=== PATIENT | female | born 1960 | race Caucasian/White ===

== ENCOUNTER → 2016-03-26 | Outpatient (CLI) | payer OTHER ==
--- NOTE | 2016-03-27 09:00 | BD ---
EXAMINATION TYPE: MG DEXA axial skeleton. DATE OF EXAM: 03/26/2016 4:28 PM COMPARISON: NONE CLINICAL HISTORY: Height: 63 IN Weight: 117 LBS FRAX RISK QUESTIONS: Alcohol (3 or more units per day): NO Family History (Parent hip fracture): NO Glucocorticoids (More than 3mos): NO (Ex: prednisone, prednisolone, methylprednisolone, dexamethasone, and hydrocortisone). History of Fracture in Adulthood: NO Secondary Osteoporosis: 1. Type 1 Diabetes: NO 2. Hyperthyroidism: NO 3. Menopause before 45: NO AGE 53 4. Malnutrition: NO 5. Chronic liver disease: NO Rheumatoid Arthritis: NO Current Tobacco Use: NO RISK FACTORS HISTORY OF: Postmenopausal woman: AGE 53 MEDICATIONS: Additional Medications: NONE EXAM MEASUREMENTS: Bone mineral densitometry was performed using the [employer] System. Bone mineral density as measured about the Lumbar spine is: ----- L1-L4(G/cm2): 1.091 T Score Values are as follows: ----- L2: -1.3 ----- L3: -0.7 ----- L4: 0.0 ----- L1-L4: -0.7 Bone mineral density BASELINE Bone mineral density about the R hip (g/cm2): 0.780 Bone mineral density about the L hip (g/cm2): 0.718 T Score values are as follows: -----R Neck: -1.9 -----L Neck: -2.3 -----R Intertrochanter: -2.0 -----L Intertrochanter: -2.2 Bone mineral density has: BASELINE IMPRESSION: Osteopenia (T Score between -2.5 and -1 as noted by T score values There is slightly increased risk of fracture and the patient may be considered for treatment. Re-Screen 1-2 years.L2 AND KERRI HIPS NOTE: T-SCORE=SD OF THE YOUNG ADULT MEAN.
--- NOTE | 2016-04-02 09:40 | MM ---
Reason for exam: screening (asymptomatic). Last mammogram was performed 3 years and 1 month ago. History: Patient is postmenopausal. Physical Findings: A clinical breast exam by your physician is recommended on an annual basis and results should be correlated with mammographic findings. MG 3D Screening Mammo W/Cad Bilateral CC and MLO view(s) were taken. Prior study comparison: March 09, 2013, right diagnostic mammogram w/CAD. December 22, 2012, mammogram, performed at [facility]. The breast tissue is heterogeneously dense. This may lower the sensitivity of mammography. There is no discrete abnormality. ASSESSMENT: Negative, BI-RAD 1 RECOMMENDATION: Routine screening mammogram of both breasts in 1 year.
== END | disposition home or self-care (01) ==
LOC: RADMAMWWP 15:17
PROVIDERS: ATTEND Family Medicine
DX: Z12.31 Encounter for screening mammogram for malignant neoplasm of breast (principal); M85.852 Other specified disorders of bone density and structure, left thigh; M85.851 Other specified disorders of bone density and structure, right thigh; M85.88 Other specified disorders of bone density and structure, other site
CPT/HCPCS: 77080; 77063; G0202

== ENCOUNTER → 2018-03-04 | Outpatient (CLI) | payer OTHER ==
--- NOTE | 2018-03-05 10:39 | MM ---
Reason for exam: screening (asymptomatic). Last mammogram was performed 1 year and 11 months ago. History: Patient is postmenopausal. Took hormonal contraceptives for 15 years. Physical Findings: A clinical breast exam by your physician is recommended on an annual basis and results should be correlated with mammographic findings. MG 3D Screening Mammo W/Cad Bilateral CC and MLO view(s) were taken. Prior study comparison: March 26, 2016, bilateral MG 3d screening mammo w/cad. March 09, 2013, right diagnostic mammogram w/CAD. The breast tissue is heterogeneously dense. This may lower the sensitivity of mammography. Focal asymmetry upper outer right breast middle third position. This finding is changed when compared with previous exams. ASSESSMENT: Incomplete: need additional imaging evaluation, BI-RAD 0 RECOMMENDATION: Special view mammogram of the right breast. If lesion persists on supplemental views, image directed ultrasound is recommended. [facility] will attempt to contact patient to return for supplemental views and ultrasound if indicated.
== END | disposition home or self-care (01) ==
LOC: RADMAMWWP 15:14
PROVIDERS: ATTEND Family Medicine
DX: Z12.31 Encounter for screening mammogram for malignant neoplasm of breast (principal)
CPT/HCPCS: 77063; 77067

== ENCOUNTER → 2018-03-23 | Outpatient (CLI) | payer OTHER ==
--- NOTE | 2018-03-27 12:22 | MM ---
Reason for exam: additional evaluation requested from abnormal screening. Last mammogram was performed 1 month ago. History: Patient is postmenopausal. Took hormonal contraceptives for 15 years. Physical Findings: Nurse did not find any significant physical abnormalities on exam. MG 3D Work Up W/Cad RT Spot compression CC, spot compression MLO, and LM view(s) were taken of the right breast. Prior study comparison: March 04, 2018, bilateral MG 3d screening mammo w/cad. March 26, 2016, bilateral MG 3d screening mammo w/cad. The breast tissue is heterogeneously dense. This may lower the sensitivity of mammography. No distinct lesion persists on additional views. These results were verbally communicated with the patient and result sheet given to the patient on 03/23/18. ASSESSMENT: Benign, BI-RAD 2 RECOMMENDATION: Return to routine screening mammogram schedule for both breasts.
== END | disposition home or self-care (01) ==
LOC: RADMAMWWP 10:08
PROVIDERS: ATTEND Family Medicine
DX: R92.8 Other abnormal and inconclusive findings on diagnostic imaging of breast (principal)
CPT/HCPCS: 77061; 77065

== ENCOUNTER → 2021-05-16 | Outpatient (CLI) | payer OTHER ==
--- NOTE | 2021-05-16 11:12 | BD ---
EXAMINATION TYPE: Axial Bone Density DATE OF EXAM: 05/16/2021 COMPARISON: NONE CLINICAL HISTORY: 60 year old Female. ICD-10 CODE: Z78.0 MENOPAUSAL STATE Height: 63 Weight: 133.8 FRAX RISK QUESTIONS: Alcohol (3 or more units per day): no Family History (Parent hip fracture): no Glucocorticoids (More than 3mos): no (Ex: prednisone, prednisolone, methylprednisolone, dexamethasone, and hydrocortisone). History of Fracture in Adulthood: no Secondary Osteoporosis: 1. Type 1 Diabetes: no 2. Hyperthyroidism: no 3. Menopause before 45: no 4. Malnutrition: no 5. Chronic liver disease: no Rheumatoid Arthritis: no Current Tobacco Use: no RISK FACTORS HISTORY OF: Surgery to Spine/Hip(right/left)/Wrist (right/left): no Family History of Osteoporosis: no Active: yes Diet low in dairy products/other sources of calcium: yes Postmenopausal woman: yes Take estrogen and/or progesterone medications: yes Lost more than 2 inches in height since high school: no MEDICATIONS: Additional History: EXAM MEASUREMENTS: Bone mineral densitometry was performed using the [email or web address] System. Bone mineral density as measured about the Lumbar spine is: ----- L1-L4(G/cm2): 1.022 T Score Values are as follows: ----- L1: -1.9 ----- L2: -2.3 ----- L3: -0.6 ----- L4: -1.0 ----- L1-L4: -1.3 Bone mineral density has: decreased -6.2 % since study of: 03.26.2016 Bone mineral density about the R hip (g/cm2): 0.720 Bone mineral density about the L hip (g/cm2): 0.689 T Score values are as follows: -----R Neck: -2.3 -----L Neck: -2.5 -----R Total: -1.8 -----L Total: -2.0 Bone mineral density has: decreased -1.5 % since study of: 03.26.2016 FRAX %: The graph provided illustrates a 11.7% chance for a major osteoporotic fx and a 2.3% chance f or the hips probability for fx in 10 years time. IMPRESSION: Osteopenia lumbar spine and bilateral femora. NOTE: T-SCORE=SD OF THE YOUNG ADULT MEAN.
== END | disposition home or self-care (01) ==
LOC: RADBDWWP 09:09
PROVIDERS: ATTEND Family Medicine
DX: M85.89 Other specified disorders of bone density and structure, multiple sites (principal); Z78.0 Asymptomatic menopausal state
CPT/HCPCS: 77080

== ENCOUNTER → 2021-05-24 | Outpatient (CLI) | payer OTHER ==
--- NOTE | 2021-05-28 10:48 | MM ---
Reason for exam: screening (asymptomatic). Last mammogram was performed 3 years and 2 months ago. History: Patient is postmenopausal. Took hormonal contraceptives for 15 years. Physical Findings: A clinical breast exam by your physician is recommended on an annual basis and results should be correlated with mammographic findings. MG 3D Screening Mammo W/Cad Bilateral CC and MLO view(s) were taken. Prior study comparison: March 23, 2018, right breast MG 3d work up w/cad RT. March 04, 2018, bilateral MG 3d screening mammo w/cad. The breast tissue is heterogeneously dense. This may lower the sensitivity of mammography. There are benign appearing round calcifications in the left breast. There is no discrete abnormality. ASSESSMENT: Benign, BI-RAD 2 RECOMMENDATION: Routine screening mammogram of both breasts in 1 year.
== END | disposition home or self-care (01) ==
LOC: RADMAMWWP 08:12
PROVIDERS: ATTEND Family Medicine
DX: Z12.31 Encounter for screening mammogram for malignant neoplasm of breast (principal); Z78.0 Asymptomatic menopausal state
CPT/HCPCS: 77063; 77067

== ENCOUNTER → 2022-04-02 | Outpatient (CLI) | payer OTHER ==
--- NOTE | 2022-04-02 14:56 | NM ---
EXAMINATION TYPE: NM bone scan whole body DATE OF EXAM: 04/02/2022 COMPARISON: NONE HISTORY: M54.51 Delayed whole-body scanning was performed following the injection of 22.1 mCi Tc 99m MDP. Images acq uired 3 hours post injection. FINDINGS: Degenerative uptake at the cervicothoracic junction as well as at L4 and L5 greatest on the left. No intense uptake to suggest fracture or bony metastatic disease. IMPRESSION: Generative changes as noted.
== END | disposition home or self-care (01) ==
LOC: RADNMMAIN 10:43
PROVIDERS: ATTEND Physical Medicine & Rehabilitation
DX: M47.23 Other spondylosis with radiculopathy, cervicothoracic region (principal); M48.062 Spinal stenosis, lumbar region with neurogenic claudication; M43.16 Spondylolisthesis, lumbar region; M47.27 Other spondylosis with radiculopathy, lumbosacral region
CPT/HCPCS: 78306; A9503

== ENCOUNTER → 2022-06-25 | Day surgery (SDC) | payer OTHER ==
[2022-06-20 15:40] VITALS: BMI 22.4
[~2022-06-25] MED LIST: BALANCED SALT IRRIG SOLN COMB2 15 ML IRRIG.SOLN INTRAOCULA ONE; DUOVISC KIT (GREEN BOX) INTRAOCULA ONE; EPINEPHrine (PF) 0.3 ML in BALANCED SALT IRRIG SOLN COMB2 500 ML IRRIGATION ONE; LACTATED RINGERS 1,000 ML IV SCH; LIDOCAINE 1% (10MG/ML) FOR IV START INTRADERMA PRN; LIDOCAINE 1% (PF) 10MG/ML VIAL MISCELLANE ONE; MIDAZOLAM 2 MG/2 ML VIAL ONE; MOXIFLOXACIN HCL 0.5% DROPS 3 ML BTL OP PRN; ONDANSETRON 4 MG/2 ML VIAL IVP PRN; TETRACAINE 0.5% OPHTH (PF) DROPS 4 ML BTL OP PRN; TIMOLOL 0.5% OPHTH DROPS 5 ML BTL OP PRN; fentaNYL (PF) 50 MCG/ML 2 ML AMP IV PRN; fentaNYL (PF) 50 MCG/ML 2 ML AMP ONE
[2022-06-25] MEDS: CYCLOPENTOLATE 1% OPHTH SOLN 2 ML BTL OP PRN ×3 (08:00→08:15)
[2022-06-25 08:03] VITALS: RESP 16; TEMP 97.1
[2022-06-25] MEDS: PHENYLEPHRINE 2.5% OPHTH DRP 2ML OP PRN ×3 (08:03→08:18)
[2022-06-25 08:09] LABS: Glucose,Whole Blood 107 mg/dL (70-110)
--- NOTE | 2022-06-25 09:32 | P.OP ---
Date of Procedure: 06/25/22 Preoperative Diagnosis: NS & CS & PSC Postoperative Diagnosis: same & reg astigmatism Procedure(s) Performed: PIOL< OS Implants: [id number] 20.00 Anesthesia: MAC Surgeon: Chad Valdes Pathology: none sent Condition: stable Disposition: same day Indications for Procedure: blurry vision Operative Findings: no complications
[2022-06-25 10:24] VITALS: BP 100/62; PULSE 67
--- NOTE | 2022-06-25 19:17 | OP ---
OPERATIVE REPORT DATE OF SERVICE : 06/25/2022 PROCEDURE PERFORMED: Phacoemulsification of cataract and intraocular lens implant of the left eye. PREOPERATIVE DIAGNOSES: 1. Nuclear sclerosis. 2. Cortical sclerosis. 3. Posterior subcapsular cataract. POSTOPERATIVE DIAGNOSES: 1. Nuclear sclerosis. 2. Cortical sclerosis. 3. Posterior subcapsular cataract. 4. Regular astigmatism. ANESTHESIA: Topical. ESTIMATED BLOOD LOSS: None. SPECIMEN TAKEN: None. NARRATIVE: After obtaining the appropriate consent, the patient was brought to the operating room. There, she was asked to sit upright, and the axes of 0 and 180 degrees were identified and marked with a gentian verónica marker on the patient's corneal limbus. She was then placed in the proper supine position under cardiac monitoring and prepped and draped in the usual sterile manner. She was approached from her left temporal side, and using the previously-acquired corneal topography information, the axis of 179 degrees was identified and marked with a [employer] axis marker. At the 5 o'clock position, an MVR blade was used to create a paracentesis port. Through this opening, 1% Xylocaine MPF 50:50 mix with balanced salt solution was injected into the anterior chamber. This was followed by stabilization of the anterior chamber with Viscoat. At the 3 o'clock position, a 2.5 mm keratome was used to create a self-sealing corneal flap incision. Through that opening, a cystotome was introduced to begin a continuous tear capsulorrhexis, which was completed using the Utrata forceps. Hydrodissection and hydrodelineation of the lens were accomplished with balanced salt solution. Phacoemulsification of the lens utilizing phaco chop was accomplished at 11.17 seconds at 13% power. Additional Xylocaine MPF was instilled into the anterior chamber. This was followed by removal of the remaining cortical material from in and around the intraocular lens bag as well as careful polishing of the posterior capsule to remove as much of the subcapsular cataract as possible. Provisc was then used to stabilize the capsular bag. Through the temporal incision, a Bausch and Lomb MX60ET 275, 20-diopter posterior chamber intraocular lens was injected into the capsular bag without difficulty. The remaining viscoelastic was removed from in and around the intraocular lens, and the lens was rotated to align with the previously-marked cornea at 179 degrees. The incisions were hydrated to ensure watertight integrity. She then received 2 drops of 0.5% timolol followed by 2 drops of moxifloxacin. She was then lightly patched and shielded in the usual manner. There were no complications from the procedure. She tolerated the procedure well. She returned to outpatient recovery in good condition. MMVANGIE / PAUL: [id number] /
== END | disposition home or self-care (01) ==
LOC: OR 07:30
PROVIDERS: ATTEND Ophthalmology
DX: H25.12 Age-related nuclear cataract, left eye (principal); H52.222 Regular astigmatism, left eye; E11.9 Type 2 diabetes mellitus without complications; F17.200 Nicotine dependence, unspecified, uncomplicated; Z79.84 Long term (current) use of oral hypoglycemic drugs
CPT/HCPCS: 66984; V2787; C1780; J2250; J0171; J3010; J2001

== ENCOUNTER 2022-07-09 06:15 | Day surgery (SDC) | payer OTHER ==
[~2022-07-09 06:15] MED LIST changes: -BALANCED SALT IRRIG SOLN COMB2 15 ML IRRIG.SOLN INTRAOCULA ONE; -DUOVISC KIT (GREEN BOX) INTRAOCULA ONE; -EPINEPHrine (PF) 0.3 ML in BALANCED SALT IRRIG SOLN COMB2 500 ML IRRIGATION ONE; -LACTATED RINGERS 1,000 ML IV SCH; -LIDOCAINE 1% (10MG/ML) FOR IV START INTRADERMA PRN; -LIDOCAINE 1% (PF) 10MG/ML VIAL MISCELLANE ONE; -MIDAZOLAM 2 MG/2 ML VIAL ONE; -MOXIFLOXACIN HCL 0.5% DROPS 3 ML BTL OP PRN; -ONDANSETRON 4 MG/2 ML VIAL IVP PRN; -TIMOLOL 0.5% OPHTH DROPS 5 ML BTL OP PRN; -fentaNYL (PF) 50 MCG/ML 2 ML AMP IV PRN; -fentaNYL (PF) 50 MCG/ML 2 ML AMP ONE
[2022-07-09] MEDS ORDERED: LACTATED RINGERS 1,000 ML IV SCH (06:24)
[2022-07-09] MEDS ORDERED: CYCLOPENTOLATE 1% OPHTH SOLN 2 ML BTL RIGHT EYE ONE (06:31)
[2022-07-09] MEDS: PHENYLEPHRINE 2.5% OPHTH DRP 2ML OP PRN ×3 (06:34→06:46)
[2022-07-09] MEDS: CYCLOPENTOLATE 1% OPHTH SOLN 2 ML BTL OP PRN ×2 (06:37→06:43)
[2022-07-09 06:42] VITALS: RESP 16; TEMP 96.7
[2022-07-09 06:55] LABS: Glucose,Whole Blood 106 mg/dL (70-110)
[2022-07-09] MEDS ORDERED: MIDAZOLAM 2 MG/2 ML VIAL IV ONE (06:58)
[2022-07-09] MEDS ORDERED: fentaNYL (PF) 50 MCG/ML 2 ML AMP ONE (07:22)
[2022-07-09] MEDS ORDERED: BALANCED SALT IRRIG SOLN COMB2 15 ML IRRIG.SOLN INTRAOCULA ONE (07:36)
[2022-07-09] MEDS ORDERED: HYALURONATE SODIUM INTRAOCULAR 1 EACH SYRINGE (12MG/ML) INTRAOCULA ONE (07:36)
[2022-07-09] MEDS ORDERED: LIDOCAINE 1% (PF) 10MG/ML VIAL MISCELLANE ONE (07:36)
[2022-07-09] MEDS: TIMOLOL 0.5% OPHTH DROPS 5 ML BTL OP PRN ×2 (07:41→07:49)
[2022-07-09] MEDS: MOXIFLOXACIN HCL 0.5% DROPS 3 ML BTL OP PRN ×2 (07:41→07:49)
--- NOTE | 2022-07-09 07:52 | P.OP ---
Date of Procedure: 07/09/22 Preoperative Diagnosis: NS & CS & PSC Postoperative Diagnosis: same Procedure(s) Performed: PIOL, OD Implants: MX60E 19.50 Anesthesia: MAC Surgeon: Chad Valdes Pathology: none sent Condition: stable Disposition: same day Indications for Procedure: blurry vision Operative Findings: no complications
[2022-07-09 08:01] VITALS: PULSE 53
[2022-07-09 08:24] VITALS: BP 98/65
--- NOTE | 2022-07-09 17:44 | OP ---
OPERATIVE REPORT DATE OF SERVICE : 07/09/2022 PREOPERATIVE DIAGNOSES: Nuclear sclerosis and cortical sclerosis with posterior subcapsular cataract, right eye. POSTOPERATIVE DIAGNOSES: Nuclear sclerosis and cortical sclerosis with posterior subcapsular cataract, right eye. OPERATION: Phacoemulsification of cataract and interocular lens implant of the right eye. ESTIMATED BLOOD LOSS: Zero. SPECIMEN TAKEN: None. NARRATIVE: After obtaining the appropriate consent, the patient was brought to the operating room where the patient was placed under cardiac monitoring and prepped and draped in the usual sterile manner. At the 11 o'clock position, a 15-degree super sharp blade was used to create a paracentesis followed by instillation of 1% Xylocaine MPF 50:50 mix with BSS into the anterior chamber. This was followed by Amvisc viscoelastic to stabilize the anterior chamber. At the 9 o'clock position a self-sealing corneal flap incision was created using 2.8 mm efe keratome. A cystotome was used to initiate a continuous tear capsulorrhexis which was completed with the Utrata forceps. A Binkhorst cannula was used to hydrodissect the lens nucleus followed by hydrodelineation. Phacoemulsification of the lens was performed utilizing phaco chop in 10.07 seconds at 10% power. The remaining cortical material was removed using the irrigation aspiration mode followed by additional 1% Xylocaine MPF into the anterior chamber followed by viscoelastic to stabilize the capsular bag. A Bausch and Lomb MX60E 19.5 diopters posterior chamber lens was placed into the capsular bag without difficulty. The remaining viscoelastic material was removed from the anterior chamber with the irrigation/aspiration. Balanced salt solution was used to normalize the intraocular pressure. The incision was checked for watertight integrity. The patient then received 2 drops of 0.5% timolol followed by 2 drops Vigamox, was lightly patched and shielded in the usual manner. There were no complications from the procedure. The patient tolerated the procedure well and was returned to recovery in good condition. MMODL / IJN: [id number] /
== END 2022-07-09 08:47 | disposition home or self-care (01) ==
LOC: OR 06:15
PROVIDERS: ATTEND Ophthalmology
DX: E11.36 Type 2 diabetes mellitus with diabetic cataract (principal); H25.11 Age-related nuclear cataract, right eye; Z79.84 Long term (current) use of oral hypoglycemic drugs; Z98.51 Tubal ligation status; Z98.890 Other specified postprocedural states; Z98.42 Cataract extraction status, left eye
CPT/HCPCS: 66984; C1780; J2250; J3010; J2001

== ENCOUNTER → 2022-09-11 | Outpatient (CLI) | payer OTHER ==
--- NOTE | 2022-09-12 16:21 | MM ---
Reason for Exam: Screening (asymptomatic). Last mammogram was performed 1 year(s) and 4 month(s) ago. Patient History: Menarche at age 15. First Full-Term at age 24. Postmenopausal. Patient used Hormonal Contraceptives for 15 years. Risk Values: Preeti 5 year model risk: 1.2%. NCI Lifetime model risk: 5.8%. Prior Study Comparison: 03/04/2018 Bilateral Screening Mammogram, [facility]. 03/23/2018 Right Diagnostic Mammogram, [facility]. 05/24/2021 Bilateral Screening Mammogram, [facility]. Tissue Density: There are scattered fibroglandular densities. Findings: Analyzed By CAD. Pattern appears symmetrical and stable. No significant interval change is evident. No suspicious groups of microcalcifications, spiculated or lobular masses, architectural distortion or other secondary signs of malignancy are mammographically apparent. Overall Assessment: Benign, BI-RAD 2 Management: Screening Mammogram of both breasts in 1 year. A negative mammogram report should not preclude additional follow up of suspicious palpable abnormalities. Patient should continue monthly self breast exam. A clinical breast exam by your physician is recommended on an annual basis and results should be correlated with mammographic findings. Electronically signed and approved by: Edison Bradshaw D.O. Radiologis
== END | disposition home or self-care (01) ==
LOC: RADMAMWWP 09:39
PROVIDERS: ATTEND Obstetrics & Gynecology
DX: Z12.31 Encounter for screening mammogram for malignant neoplasm of breast (principal); Z78.0 Asymptomatic menopausal state
CPT/HCPCS: 77063; 77067

== ENCOUNTER → 2023-01-20 | Outpatient (CLI) | payer OTHER ==
--- NOTE | 2023-01-20 16:21 | CTL ---
EXAMINATION TYPE: CT Low Dose Lung DATE OF EXAM ORDERED: 01/20/2023 HISTORY: 62-year-old female Z87.891, history of tobacco use, former smoker with 30 pack-year history. Lung cancer screening CT DLP: [address] CTDI: 2.0 mGy Automated exposure control for dose reduction was used. SCREENING VISIT: Baseline COMPARISON: None TECHNIQUE: Low dose computed tomography scan was performed through the chest with coronal and sagitta l reconstructions. CT DIAGNOSTIC QUALITY: Satisfactory FINDINGS: Heart is normal size without pericardial effusion. Aorta normal caliber with bovine configuration to the aortic arch. No thoracic adenopathy by CT size criteria. Strandy and hazy densities in the lower lungs likely combination of atelectasis and scarring. Biapical pleural parenchymal scarring. Mild emphysematous change. No consolidation or pleural effusio n. There are multiple bilateral pulmonary nodules varying in size between a 3 mm and largest measuring 7 mm. The two largest 7 mm nodules are present at the peripheral right based on axial image 200 and al so medial left upper lobe, axial image 70. Visualized upper abdomen shows no gross abnormality. Bones: No osseous destructive process. IMPRESSION: 1. LungRADS Category 3 (probably benign, 1-2% chance of malignancy); numerous scattered pulmonary nod ules largest measuring 7 mm on baseline screening. 2. COPD with mild emphysema. CT LUNG RAD AND CT CHEST RECOMMENDATION: Lung-Rad 3 Probably Benign: 6 month follow-up LDCT. S Modifier (other clinically significant findings): None
== END | disposition home or self-care (01) ==
LOC: RADCTMAIN 09:45
PROVIDERS: ATTEND Internal Medicine
DX: Z12.2 Encounter for screening for malignant neoplasm of respiratory organs (principal); J44.9 Chronic obstructive pulmonary disease, unspecified; J43.9 Emphysema, unspecified; Z87.891 Personal history of nicotine dependence
CPT/HCPCS: 71271

== ENCOUNTER → 2023-08-15 | Outpatient (CLI) | payer OTHER ==
--- NOTE | 2023-08-17 21:12 | MR ---
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 COMPARISON: None TECHNIQUE: Multi planar, multi sequence imaging was performed utilizing: T1-weighted, T2-weighted, a nd turbo inversion recovery imaging of the lumbar spine. IV Contrast: 6 cc Gadavist. (None if empty) FINDINGS: Alignment: The lumbar vertebral bodies have preserved heights with grade 1 anterolisthesis of L4 on L 5. Cord: The conus medullaris and the distal spinal cord appear unremarkable with regards to their signa l intensity and morphology. Bones/Discs: Mild degeneration changes throughout the spine with osteophyte formation and facet joint arthropathy. Intervertebral on inversion recovery edema in the pedicles of L4 bilaterally. Slightly heterogenous T1/T2 signal lesion in the S1 vertebrae which is high signal on inversion recovery seque nces. No abnormal postcontrast enhancement within this lesion. There is narrow zone of transition. T12-L1: No evidence of significant spinal canal stenosis or neural foraminal stenosis. L1-L2: No evidence of significant spinal canal stenosis or neural foraminal stenosis. L2-L3: No evidence of significant spinal canal stenosis or neural foraminal stenosis. L3-L4: No evidence of significant spinal canal stenosis or neural foraminal stenosis. L4-L5: Disc uncovering from grade 1 anterolisthesis and facet joint arthropathy with moderate spinal canal stenosis and moderate bilateral neural foraminal stenosis. Mild postcontrast reactive enhanceme nt around the facet joints. L5-S1: The disc has a rounded posterior morphology without significant spinal canal stenosis. Facet j oint arthropathy with mild bilateral neural foraminal stenosis. Mild postcontrast reactive enhancemen t around the facet joints. No significant spinal canal or neural foraminal stenosis in the remainder of the visualized levels. Other findings: This 2 perineural cysts measuring up to 5 mm on the right and 5 mm on the left. IMPRESSION: 1. No definitive evidence of disc herniation or significant spinal canal stenosis. 2. [id number] disc degeneration with associated osteoarthritic changes. 3. Grade 1 anterolisthesis of L4 on L5 with mild stress reaction edema within the pedicles. Moderate spinal canal stenosis at this level 4. S1 vertebral body lesion without postcontrast enhancement with nonaggressive features findings ma y represent enchondroma versus other etiologies. Consider short-term follow-up in 3-6 months. Compari son with prior MRI may be of benefit.
== END | disposition home or self-care (01) ==
LOC: RADMRIMAIN 10:49
PROVIDERS: ATTEND Internal Medicine
DX: M47.26 Other spondylosis with radiculopathy, lumbar region (principal); M43.16 Spondylolisthesis, lumbar region; M51.16 Intervertebral disc disorders with radiculopathy, lumbar region; M48.061 Spinal stenosis, lumbar region without neurogenic claudication; M89.8X8 Other specified disorders of bone, other site
CPT/HCPCS: 72158; A9585

== ENCOUNTER → 2023-11-10 | Outpatient (CLI) | payer OTHER ==
--- NOTE | 2023-11-10 09:56 | CT ---
EXAMINATION TYPE: CT chest w con DATE OF EXAM: 11/10/2023 COMPARISON: Low dose CT 01/20/2023 HISTORY: Abn lung finding CT DLP: 157.9 mGycm Automated exposure control for dose reduction was used. CONTRAST: CT scan of the chest is performed with IV Contrast, patient injected with 100 mL of Isovue 300. FINDINGS: LUNGS: Cavitary pulmonary nodules are redemonstrated measuring up to 6 mm. One or 2 of the nodules de monstrate central calcification compatible with granuloma. No new nodules or increasing size noted in the interval. No focal infiltrate or volume loss. No pleural effusion seen. MEDIASTINUM: There are no greater than 1 cm hilar or mediastinal lymph nodes. No pericardial effusi on is seen. Thoracic aorta is of normal caliber. The heart is not enlarged. UPPER ABDOMEN: There is evidence of hepatic steatosis. OTHER: No additional significant abnormality is seen. IMPRESSION: 1. Stable scattered pulmonary nodules. Stability over a two-year timeframe should be documented radio graphically. Couple of scattered granulomas seen.
== END | disposition home or self-care (01) ==
LOC: RADCTMAIN 09:25
PROVIDERS: ATTEND Internal Medicine
DX: R91.8 Other nonspecific abnormal finding of lung field
CPT/HCPCS: 71260

== ENCOUNTER → 2023-12-19 | Outpatient (CLI) | payer OTHER ==
--- NOTE | 2023-12-22 18:45 | MR ---
EXAMINATION TYPE: MR lumbar spine wo/w con DATE OF EXAM: 12/19/2023 COMPARISON: MRI lumbar spine 08/15/2023 HISTORY: Lower back pain, BLE radiculopathy, F/U comparison to prior abnormal MRI 08-15-23. TECHNIQUE: Multiplanar, multisequence images of the lumbar spine were acquired without and with 5 mL intravenous Gadavist gadolinium contrast. FINDINGS: Alignment: The lumbar vertebral bodies have preserved heights. Grade 1 anterolisthesis of L4 on L5 re demonstrated. Cord: The conus medullaris and the distal spinal cord appear unremarkable with regards to their signa l intensity and morphology. Incidental sacral Tarlov cysts redemonstrated. Bones/Discs: Mild degeneration changes throughout the spine with osteophyte formation and facet joint arthropathy. Stable 1.8 cm heterogenous T1/T2 signal lesion in the S1 vertebrae which is high signal on inversion recovery sequences. Additional smaller lesion measuring 1 cm within the superior right aspect of the L1 vertebral body. No enhancement identified within the S1 lesion however there is enha ncement identified within the L1 lesion. There is narrow zone of transition. T12-L1: No evidence of significant spinal canal stenosis or neural foraminal stenosis. L1-L2: No evidence of significant spinal canal stenosis or neural foraminal stenosis. L2-L3: No evidence of significant spinal canal stenosis or neural foraminal stenosis. L3-L4: No evidence of significant spinal canal stenosis or neural foraminal stenosis. L4-L5: Disc uncovering from grade 1 anterolisthesis and facet joint arthropathy and ligament flavum b uckling. Results in similar moderate spinal canal stenosis and moderate bilateral neural foraminal st enosis. Mild postcontrast reactive enhancement around the facet joints. L5-The disc has a rounded posterior morphology without significant spinal canal stenosis. Facet joint arthropathy with mild bilateral neural foraminal stenosis.sis. Mild postcontrast reactive enhancemen t around the facet joints. IMPRESSION: 1. Similar mild to moderate disc degeneration with associated osteoarthritic changes. 2. Grade 1 anterolisthesis of L4 on L5 with mild stress reaction edema within the pedicles again. Mo derate spinal canal stenosis at this level. 3. Stable S1 and L1 vertebral body lesions. The S1 lesion does not enhance. The L1 lesion does enhan ce. These lesions are indeterminate but etiologies including enchondroma versus chondrosarcoma versus other etiologies. Recommend follow-up MRI lumbar spine with contrast in 1 year. [facility], , 12/22/2023 6:42 PM
== END | disposition home or self-care (01) ==
LOC: RADMRIMAIN 09:43
PROVIDERS: ATTEND Internal Medicine
CPT/HCPCS: 72158

== ENCOUNTER → 2024-03-16 | Outpatient (CLI) | payer OTHER ==
--- NOTE | 2024-03-16 08:01 | MM ---
Reason for Exam: Screening (asymptomatic). Last mammogram was performed 1 year(s) and 6 month(s) ago. Patient History: Menarche at age 15. First Full-Term at age 24. Postmenopausal. Patient used Hormonal Contraceptives for 15 years. Risk Values: Preeti 5 year model risk: 1.3%. NCI Lifetime model risk: 5.5%. Prior Study Comparison: 03/23/2018 Right Diagnostic Mammogram, [facility]. 05/24/2021 Bilateral Screening Mammogram, [facility]. 09/11/2022 Bilateral MG 3D screening mammo w/cad, [facility]. Tissue Density: The breasts are heterogeneously dense, which may obscure small masses. Findings: Analyzed By CAD. There are a few tiny benign-appearing round calcifications in the left breast. Benign-appearing axillary lymph nodes are present. There is no suspicious new group of microcalcifications or new suspicious mass in either breast. Overall Assessment: Benign, BI-RAD 2 Management: Screening Mammogram of both breasts in 1 year. . Patient should continue monthly self-breast exams. A clinical breast exam by your physician is recommended on an annual basis. This exam should not preclude additional follow-up of suspicious palpable abnormalities. Note on Preeti scores and lifetime risk: 1. A Preeti score greater than 3% is considered moderate risk. If this is the case, consider specialist referral to assess eligibility for a risk reducing agent. 2. If overall lifetime risk for the development of breast cancer is 20% or higher, the patient may qualify for future screening with alternating mammogram and breast MRI. [facility], , 03/16/2024 7:58 AM. Electronically signed and approved by: Jack Gregory M.D.
== END | disposition home or self-care (01) ==
LOC: RADMAMWWP 07:02
PROVIDERS: ATTEND Obstetrics & Gynecology
DX: Z12.31 Encounter for screening mammogram for malignant neoplasm of breast (principal); Z78.0 Asymptomatic menopausal state; R92.333 Mammographic heterogeneous density, bilateral breasts
CPT/HCPCS: 77063; 77067

== ENCOUNTER → 2024-09-12 | Outpatient (CLI) | payer OTHER ==
--- NOTE | 2024-09-13 11:13 | BD ---
EXAMINATION TYPE: Axial Bone Density DATE OF EXAM: 09/12/2024 CLINICAL HISTORY: 63 years old Female. ICD-10 CODE: M85.80 DISRD OF BONE DENSITY AND STRUCTURE , Add itional History: Height: 63 Weight: 127.3 FRAX RISK QUESTIONS: Alcohol (3 or more units per day): no Family History (Parent hip fracture): no Glucocorticoids (More than 3mos): no (Ex: prednisone, prednisolone, methylprednisolone, dexamethasone, and hydrocortisone). History of Fracture in Adulthood: no Secondary Osteoporosis: 1. Type 1 Diabetes: no 2. Hyperthyroidism: no 3. Menopause before 45: no 4. Malnutrition: no 5. Chronic liver disease: no Rheumatoid Arthritis: no Current Tobacco Use: no RISK FACTORS HISTORY OF: Surgery to Spine/Hip(right/left)/Wrist (right/left): no EXAM MEASUREMENTS: Bone mineral densitometry was performed using the [employer]. Bone mineral density as measured about the Lumbar spine is: ----- L1-L4(G/cm2): 1.118 T Score Values are as follows: ----- L1: -1.4 ----- L2: -1.4 ----- L3: -0.3 ----- L4: 0.4 ----- L1-L4: -0.5 Z Score Values are as follows: ----- L1: 0.3 ----- L2: 0.3 ----- L3: 1.4 ----- L4: 2.1 ----- L1-L4: 1.2 Bone mineral density has: increased 9.4 % since study of: 05.16.2021 Bone mineral density about the R hip (g/cm2): 0.820 Bone mineral density about the L hip (g/cm2): 0.787 T Score values are as follows: -----R Neck: -1.9 -----L Neck: -2.3 -----R Total: -1.5 -----L Total: -1.7 Z Score values are as follows: -----R Neck: -0.4 -----L Neck: -0.8 -----R Total: -0.2 -----L Total: -0.5 Bone mineral density has: increased 4.4 % since study of: 3.17.2021 FRAX%s: The graph provided illustrates a 11.3% chance for a major osteoporotic fx and a 2.1% chance f or the hips probability for fx in 10 years time. IMPRESSION: Osteopenia (T Score between -2.5 and -1). There is slightly increased risk of fracture and the patient may be considered for treatment. Re-Screen 2-5 years. NOTE: T-SCORE=SD OF THE YOUNG ADULT MEAN. [facility], , 09/13/2024 11:10 AM
== END | disposition home or self-care (01) ==
LOC: RADBDWWP 16:00
PROVIDERS: ATTEND Internal Medicine
DX: M85.89 Other specified disorders of bone density and structure, multiple sites (principal)
CPT/HCPCS: 77080